=== PATIENT | female | born 1965 | race Caucasian/White ===

== ENCOUNTER 2016-11-01 09:04 | Outpatient (CLI) | payer MEDICAID, OTHER ==
[2016-11-01] MEDS ORDERED: BARIUM SULFATE 135 ML BOTTLE PO ONE (09:59)
[2016-11-01] MEDS ORDERED: BARIUM SULFATE 454 GM TUBE PO ONE (09:59)
--- NOTE | 2016-11-01 10:32 | XRAY Report ---
MODIFIED BARIUM SWALLOW: 11/01/2016 CLINICAL INDICATION: Dysphagia. FINDINGS: Various consistencies of barium were prepared and administered in conjunction with speech pathology. There was no evidence of penetration or aspiration with any administered consistency. Plea se also refer to full report from speech pathology for further findings. IMPRESSION: NO EVIDENCE OF PENETRATION OR ASPIRATION. FLUOROSCOPY TIME: 1 MINUTE 3 SECONDS; 1 SPOT IMAGE OBTAINED (CINE FLUOROSCOPY RECORDED). JOB #: [id number] EXT JOB #:[id number]
== END 2016-11-01 09:05 | disposition home or self-care (01) ==
LOC: DI 09:04
PROVIDERS: ATTEND Nurse Practitioner Family
DX: R13.19 Other dysphagia (principal)
CPT/HCPCS: 74230; 92611; A9270

== ENCOUNTER 2017-03-10 08:48 | Outpatient (CLI) | payer OTHER ==
[2017-03-10 17:45] LABS: BILIRUBIN,URINE NEGATIVE (NEGATIVE); PH,URINE 7.5 PH (5.0-7.5)
[2017-03-10 17:48] LABS: UA CHARGE (STRIP ONLY) YES; UR CULTURE IF IND NOT INDICATED
[2017-03-10 17:52] LABS: BASOPHILS # (AUTO) 0.2 10^3/uL (0.0-0.1); BASOPHILS % (AUTO) 2.4 %; EOSINOPHILS # (AUTO) 0.7 10^3/uL (0.0-0.7); EOSINOPHILS % (AUTO) 10.1 %; HCT - HEMATOCRIT 42.2 % (37.0-47.0); HGB - HEMOGLOBIN 14.1 g/dL (12.0-16.0); LYMPHOCYTES # (AUTO) 1.7 10^3/uL (1.5-3.5); LYMPHOCYTES % (AUTO) 25.3 %; MEAN CORPUSCULAR HEMOGLOBIN 29.3 pg (27.0-31.0); MEAN CORPUSCULAR HGB CONC 33.4 g/dL (32.0-36.0); MEAN CORPUSCULAR VOLUME 87.8 fL (81.0-99.0); MEAN PLATELET VOLUME 9.5 fL (7.9-10.8); MONOCYTES # (AUTO) 0.5 10^3/uL (0.0-1.0); MONOCYTES % (AUTO) 7.1 %; NEUTROPHILS # (AUTO) 3.7 10^3/uL (1.5-6.6); NEUTROPHILS % (AUTO) 55.1 %; RED BLOOD COUNT 4.81 10^6/uL (4.20-5.40); RED CELL DISTRIBUTION WIDTH 12.8 % (12.0-15.0); UNCORRECTED WHITE BLOOD COUNT 6.7 x10^3/uL; WHITE BLOOD COUNT 6.7 x10^3/uL (4.8-10.8)
[2017-03-10 18:13] LABS: ALBUMIN/GLOBULIN RATIO 1.6 (1.0-2.2); BILIRUBIN,TOTAL 0.7 mg/dL (0.2-1.0); BUN - BLOOD UREA NITROGEN 11 mg/dL (6-20); CALCIUM 8.7 mg/dL (8.5-10.3); CARBON DIOXIDE - CO2 28 mmol/L (21-32); CHLORIDE 102 mmol/L (101-111); CHOL/HDL RATIO 3.2 (<4.4); CHOLESTEROL 196 mg/dL; CREATININE 0.8 mg/dL (0.4-1.0); GFR - MDRD 75 (>89); GLUCOSE 83 mg/dL (70-100); HDL CHOLESTEROL 61 mg/dL; SODIUM 136 mmol/L (135-145); TOTAL PROTEIN 6.5 g/dL (6.7-8.2); TRIGLYCERIDES 82 mg/dL; VLDL CHOLESTEROL 16 mg/dL
[2017-03-12 16:31] LABS: TEST RESULT REPORT
== END 2017-03-10 08:49 | disposition home or self-care (01) ==
LOC: LAB.F 08:48
PROVIDERS: ATTEND Nurse Practitioner Family
DX: Z00.00 Encounter for general adult medical examination without abnormal findings (principal); R30.0 Dysuria; E55.9 Vitamin D deficiency, unspecified; E78.5 Hyperlipidemia, unspecified; N90.89 Other specified noninflammatory disorders of vulva and perineum
CPT/HCPCS: 36415; 80053; 80061; 81001; 81003; 81599; 82306; 82728; 85025; 86695; 86696; 87086

== ENCOUNTER 2018-08-18 14:50 | Outpatient (CLI) | payer OTHER ==
[2018-08-18 17:34] LABS: ALBUMIN 4.1 g/dL (3.2-5.5); ALBUMIN/GLOBULIN RATIO 1.6 (1.0-2.2); BILIRUBIN,TOTAL 0.6 mg/dL (0.2-1.0); CALCIUM 9.1 mg/dL (8.5-10.3); CREATININE 0.7 mg/dL (0.4-1.0); TOTAL PROTEIN 6.7 g/dL (6.7-8.2)
== END 2018-08-18 14:51 | disposition home or self-care (01) ==
LOC: LAB.F 14:50
PROVIDERS: ATTEND Nurse Practitioner Family
DX: E55.9 Vitamin D deficiency, unspecified (principal); Z79.899 Other long term (current) drug therapy
CPT/HCPCS: 36415; 80053; 82306

== ENCOUNTER 2018-09-04 15:56 | Outpatient (CLI) | payer OTHER ==
--- NOTE | 2018-09-05 10:36 | Mammography Report ---
Reason: SCREENING MAMMOGRAM Procedure Date: 09/04/2018 Accession Number: [id number] / [id number] Procedure: CRISPIN - Screening Mammo w/Crow CPT Code: FULL RESULT: EXAM: Screening Mammo w/Crow DATE: 09/04/2018 4:56 PM CLINICAL HISTORY: Screening examination. TECHNIQUE: (B) - Bilateral CC and MLO views were obtained. Bilateral exaggerated CC views were also obtained. COMPARISON: 04/07/2016, 03/23/2016 PARENCHYMAL PATTERN: (A) - The breasts demonstrate scattered fibroglandular densities bilaterally. FINDINGS: There are no suspicious masses, calcifications, or areas of distortion. IMPRESSION: Negative examination. BI-RADS category 1. RECOMMENDATION: (ANNUAL) - Recommend routine annual screening mammography. BI-RADS CATEGORY: (1) - Negative. STANDARD QUALIFYING STATEMENTS: 1. This examination was not reviewed with the aid of Computer-Aided Detection (CAD). 2. A negative or benign imaging report should not preclude biopsy if clinically suspicious findings are present. 3. Dense breasts may obscure an underlying neoplasm. 4. This examination was reviewed with the aid of 3D breast imaging (tomosynthesis).
== END 2018-09-04 15:57 | disposition home or self-care (01) ==
LOC: DI 15:56
PROVIDERS: ATTEND Nurse Practitioner Family
DX: Z12.31 Encounter for screening mammogram for malignant neoplasm of breast (principal)
CPT/HCPCS: 77063; 77067

== ENCOUNTER 2018-12-28 08:25 | Outpatient (CLI) | payer OTHER ==
[2018-12-28 10:27] LABS: ALBUMIN/GLOBULIN RATIO 1.5 (1.0-2.2); BILIRUBIN,TOTAL 0.8 mg/dL (0.2-1.0); CALCIUM 9.1 mg/dL (8.5-10.3); CREATININE 0.8 mg/dL (0.4-1.0); TOTAL PROTEIN 6.7 g/dL (6.7-8.2)
== END 2018-12-28 08:26 | disposition home or self-care (01) ==
LOC: LAB.S 08:25
PROVIDERS: ATTEND Nurse Practitioner Family
DX: R00.2 Palpitations (principal)
CPT/HCPCS: 36415; 80053

== ENCOUNTER 2019-09-06 16:35 | Outpatient (CLI) | payer OTHER | END 2019-09-06 16:36 | disposition home or self-care (01) | LOC: COV 16:35 | PROVIDERS: ATTEND Family Medicine | DX: R05 Cough (principal); R06.02 Shortness of breath; R06.2 Wheezing; M79.10 Myalgia, unspecified site; R53.83 Other fatigue; J02.9 Acute pharyngitis, unspecified; R19.7 Diarrhea, unspecified | CPT/HCPCS: 81599 ==

== ENCOUNTER 2020-08-12 13:09 | Outpatient (CLI) | payer OTHER | END 2020-08-12 13:10 | disposition home or self-care (01) | LOC: LAB.S 13:09 | PROVIDERS: ATTEND Nurse Practitioner Family | DX: Z00.00 Encounter for general adult medical examination without abnormal findings (principal); Z53.9 Procedure and treatment not carried out, unspecified reason; E55.9 Vitamin D deficiency, unspecified; E78.5 Hyperlipidemia, unspecified ==

== ENCOUNTER 2020-08-13 08:41 | Outpatient (CLI) | payer OTHER ==
[2020-08-13 14:29] LABS: BASOPHILS # (AUTO) 0.2 10^3/uL (0.0-0.1); BASOPHILS % (AUTO) 2.9 %; EOSINOPHILS # (AUTO) 0.7 10^3/uL (0.0-0.7); EOSINOPHILS % (AUTO) 11.2 %; HCT - HEMATOCRIT 42.6 % (37.0-47.0); HGB - HEMOGLOBIN 14.1 g/dL (12.0-16.0); LYMPHOCYTES # (AUTO) 2.2 10^3/uL (1.5-3.5); LYMPHOCYTES % (AUTO) 36.4 %; MEAN CORPUSCULAR HEMOGLOBIN 29.7 pg (27.0-31.0); MEAN CORPUSCULAR HGB CONC 33.1 g/dL (32.0-36.0); MEAN CORPUSCULAR VOLUME 89.7 fL (81.0-99.0); MEAN PLATELET VOLUME 11.5 fL (7.9-10.8); MONOCYTES # (AUTO) 0.5 10^3/uL (0.0-1.0); MONOCYTES % (AUTO) 8.1 %; NEUTROPHILS # (AUTO) 2.4 10^3/uL (1.5-6.6); NEUTROPHILS % (AUTO) 41.2 %; PLT - PLATELET COUNT 235 10^3/uL (130-450); RED BLOOD COUNT 4.75 10^6/uL (4.20-5.40); RED CELL DISTRIBUTION WIDTH 12.5 % (12.0-15.0); WHITE BLOOD COUNT 5.9 x10^3/uL (4.8-10.8)
[2020-08-13 15:07] LABS: ALBUMIN/GLOBULIN RATIO 1.4 (1.0-2.2); ALKALINE PHOSPHATASE 51 IU/L (42-121); ALT ALANINE AMINOTRANSFERASE 15 IU/L (10-60); AST ASPARTATE AMINOTRANSFERASE 18 IU/L (10-42); BILIRUBIN,TOTAL 0.9 mg/dL (0.2-1.0); BUN - BLOOD UREA NITROGEN 11 mg/dL (6-20); CARBON DIOXIDE - CO2 28 mmol/L (21-32); CHLORIDE 104 mmol/L (101-111); CHOL/HDL RATIO 3.7 (<4.4); CHOLESTEROL 192 mg/dL; CREATININE 0.8 mg/dL (0.4-1.0); GFR - MDRD 74 (>89); GLUCOSE 87 mg/dL (70-100); HDL CHOLESTEROL 52 mg/dL; LDL CHOLESTEROL,CALCULATED 122 mg/dL; LDL/HDL RATIO 2.3 (<4.4); SODIUM 139 mmol/L (135-145); TOTAL PROTEIN 6.8 g/dL (6.7-8.2); TRIGLYCERIDES 92 mg/dL; VLDL CHOLESTEROL 18 mg/dL
== END 2020-08-13 08:42 | disposition home or self-care (01) ==
LOC: LAB.S 08:41
PROVIDERS: ATTEND Nurse Practitioner Family
DX: Z00.00 Encounter for general adult medical examination without abnormal findings (principal); E55.9 Vitamin D deficiency, unspecified; E78.5 Hyperlipidemia, unspecified
CPT/HCPCS: 36415; 80053; 80061; 82306; 82728; 83721; 85025

== ENCOUNTER 2021-10-01 08:00 | Outpatient (CLI) | payer OTHER ==
[2021-10-01 19:58] LABS: BILIRUBIN,URINE NEGATIVE (NEGATIVE); GLUCOSE, URINE (UA) NEGATIVE (NEGATIVE); KETONES,URINE (UA) NEGATIVE (NEGATIVE); LEUKOCYTE ESTERASE, URINE NEGATIVE (NEGATIVE); NITRITE,URINE NEGATIVE (NEGATIVE); OCCULT BLOOD,URINE NEGATIVE (NEGATIVE); PH,URINE 6.5 PH (5.0-7.5); PROTEIN,URINE NEGATIVE (NEGATIVE); UROBILINOGEN,URINE 0.2 (NORMAL) E.U./dL (NORMAL)
[2021-10-01 20:15] LABS: CLARITY,URINE CLEAR (CLEAR)
[2021-10-01 20:16] LABS: BACTERIA,URINE None Seen /HPF (None Seen); RBC,URINE None Seen /HPF (0-5); SQUAMOUS EPITHELIAL CELL,UR RARE Squamous (<= Few); WBC,URINE 0-3 /HPF (0-5)
== END 2021-10-01 23:59 | disposition home or self-care (01) ==
LOC: LAB 08:00
PROVIDERS: ATTEND Physician Assistant Medical
DX: R35.0 Frequency of micturition (principal)
CPT/HCPCS: 81001; 87086

== ENCOUNTER 2021-10-13 22:06 | Emergency (ER) | payer OTHER ==
--- NOTE | 2021-10-13 22:23 | ED Physician Documentation ---
PD HPI CHEST PAIN - Stated complaint Stated Complaint: CHEST PX - History obtained from History obtained from: Patient - History of Present Illness Timing - onset: Yesterday Timing - details: Gradual onset, Waxing and waning Pain level max: 3 Pain level now: 0 Quality: Tightness, Sharp, Pain Radiation: Back (left upper back), Left upper extremity (left shoulder) Improved by: Nothing Worsened by: Other (no exacerbating factors) Associated symptoms: No: Shortness of air, Diaphoresis, Nausea, Vomiting, Feeling faint / dizzy, General Weakness, Palpitations, Cough Similar symptoms before: Has not had sx before Recently seen: Not recently seen - Additional information Additional information: patient c/o left chest pain, episodic since yesterday morning. She started rx propranolol yesterday before symptoms started; this was prescribed for migraine headache. She had not taken this medication before and last dose was 3 PM today. She has had intermittent chest pain since starting the medication. Today she noted heart rate was as low as 40s and blood pressure was as low as 68/47. Review of Systems Constitutional: reports: Reviewed and negative Cardiac: reports: Chest pain / pressure. denies: Palpitations, Pedal edema Respiratory: reports: Reviewed and negative GI: reports: Reviewed and negative PD PAST MEDICAL HISTORY - Past Medical History Past Medical History: Yes Neuro: Migraines - Present Medications Home Medications: Ambulatory Orders Medication Instructions Recorded Confirmed Sumatriptan Succinate [Imitrex] 100 mg PO DAILY 10/14/21 10/14/21 - Allergies Allergies/Adverse Reactions: Allergies Allergy/AdvReac Type Severity Reaction Status Date / Time latex Allergy Unknown Verified 10/14/21 00:20 Penicillins Allergy Unknown Verified 10/14/21 00:21 Sulfa (Sulfonamide Allergy Unknown Verified 10/14/21 00:22 Antibiotics) tamoxifen Allergy Unknown Verified 10/14/21 00:20 - Living Situation Living Arrangement: reports: At home - Social History Does the pt smoke?: No PD ED PE NORMAL - Vitals Vital signs reviewed: Yes - General General: Alert and oriented X 3, No acute distress, Well developed/nourished - Cardiac Cardiac: RRR, No murmur, No gallop, No rub - Respiratory Respiratory: No respiratory distress, Clear bilaterally - Abdomen Abdomen: Soft, Non tender - Extremities Extremities: No edema Results - Vitals Vitals: Oxygen O2 Source Room air - EKG (time done) No standard instances Rate: Rate (enter#) (47) Rhythm: NSR Howes: Normal Intervals: Normal OR QRS: Normal Ischemia: Normal ST segments - Labs Labs: Laboratory Tests 10/13/21 10/13/21 10/13/21 22:35 22:35 23:03 WBC 7.2 RBC 4.52 Hgb 13.8 Hct 40.1 MCV 88.7 MCH 30.5 MCHC 34.4 RDW 12.6 Plt Count 194 MPV 11.5 H Neut # (Auto) 2.8 Lymph # (Auto) 3.0 [place] # (Auto) 0.6 Eos # (Auto) 0.7 Baso # (Auto) 0.2 H Absolute Nucleated RBC 0.00 Nucleated RBC % 0.0 Sodium 139 Potassium 4.2 Chloride 102 Carbon Dioxide 29 Anion Gap 8.0 BUN 11 Creatinine 0.8 Estimated GFR (MDRD) 74 L Glucose 107 H Calcium 8.8 Total Bilirubin 0.4 AST 21 ALT 13 Alkaline Phosphatase 52 Troponin I High Sens 2.6 Total Protein 6.5 L Albumin 4.0 Globulin 2.5 Albumin/Globulin Ratio 1.6 Lipase 37 PD MEDICAL DECISION MAKING - ED course Complexity details: reviewed results, re-evaluated patient, considered abimael álvarez, d/w patient ED course: c/o intermittent chest pain since starting propranolol yesterday which was prescribed for migraine headache. she noted low heart rate and low blood pressure reading at home as noted above (in HPI). she is normotensive in ED with pulse rate 40s-60. EKG unremarkable aside from sinus bradycardia and blood tests unremarkable including normal hs-cTn. Unclear as to cause of chest pain at this time. I instructed patient to not take the propranolol and to follow up with pmd to discuss alternative medication for migraine control as well as reeva luation regarding the chest pain. Departure - Departure Disposition: 01 Home, Self Care Clinical Impression: Bradycardia Chest pain Qualifiers: Chest pain type: unspecified Qualified Code(s): R07.9 - Chest pain, unspecified Condition: Good Instructions: ED Bradycardia, ED Chest Pain Atypical Unkn Cause Comments: As we discussed, the most likely explanation for the low heart rate and low blood pressures you had at home is the propranolol; you should not take the propranolol again. As for the chest pain, this might have been a consequence of the low blood pressure but there are other possible causes. For example, if your chest pain were due to angina (chest pain due to inadequate blood flow through one or more of the coronary arteries), this might have actually been the cause of the low blood pressure. Tonight's tests are reassuring (EKG, blood tests including a cardiac blood test), but you should follow up with your primary care provider for reevaluation and to see if other tests are needed. Discharge Date/Time: 10/14/21 01:17
--- OUTSIDE RECORDS SUMMARY | 2021-10-13 22:50 | EXTERNAL MEDICAL SUMMARY RPT | Continuity of Care Document ---
:1965 Author Organization [facility] Address [address] [place] [address] Phone Care Team Providers Name Role Phone MANAGER [employer]POR[employer]S-C Unavailable Unavailable Allergies No information. Encounters No information. Medications No information. Problems date description facility 20211001 Urinary frequency [facility] 20211001 Urinalysis with Microscopic Exam, [facility] & Culture in Indicated Ancillary Services [facility] 20211001 Unspecified symptom associated with [facility]-In Clinic Primary Care & female genital organs Ancillary Services [facility] 20211001 Unspecified abdominal pain Walk-In Cli j[facility] 20211001 US PELVIC/TRANSVAGINAL [facility] 20211001 US ABDOMINAL COMPLETE [facility] P rimary Care & [facility] 20211001 Tobacco smoking status NHIS [facility] in [facility] 20211001 Pelvic and perineal pain [facility] 20211001 Pain in pelvis [facility] 20211001 Never smoker [facility] 20211001 Increased frequency of urination [facility] 20211001 Frequency of micturition [facility] 20211001 Exercise [facility] 20211001 Details of drug misuse behavior [facility] 20211001 Alcohol use [facility] 20211001 Alcohol intake [facility] 20211001 Acute abdominal pain [facility] Pr imary [facility] 20211001 Abdominal pain, unspecified site [facility] [id number] LIPIDS SCREEN [facility] [id number] COMPREHENSIVE METABOLIC PANEL Walk-In [facility] [id number] CBC W/Diff/Plt Walk-In Clinic [facility] Services [facility] Procedures date description facility 20211001 POC URINALYSIS DIP Walk-In [facility] Results test status date ordered by attending specimen ana e WBC_urine_on_microscop unknown 20211001 unknown unknown unknown y Urobilinogen_Presence_ unknown 20211001 unknown unknown unknown in_Urine_by_Test_strip Specific_gravity_of_Ur unknown 20211001 unknown unknown unknown ine_by_Test_strip pH_of_Urine_by_Test_st unknown 20211001 unknown unknown unknown rip Nitrite_Presence_in_Ur unknown 20211001 unknown unknown unknown ine_by_Test_strip Leukocyte_esterase_Pre unknown 20211001 unknown unknown unknown sence_in_Urine_by_Test_ strip Ketones_Mass_volume_in unknown 20211001 unknown unknown unknown _Urine_by_Test_strip Glucose_Mass_volume_in unknown 20211001 unknown unknown unknown _Urine_by_Test_strip Color_of_Urine unknown 20211001 unknown unknown unknown Bilirubin.total_Presen unknown 20211001 unknown unknown unknown ce_in_Urine_by_Test_str ip Appearance_of_Urine unknown 20211001 unknown unknown unk nown clarity_urine_point unknown 20211001 unknown unknown unk nown pH_study_of_acidity unknown 20211001 unknown unknown unk nown urinalysis_routine unknown 20211001 unknown unknown unkn own glucose_urine unknown 20211001 unknown unknown unknown appearance_urine unknown 20211001 unknown unknown unknow n leukocyte_esterase_uri unknown 20211001 unknown unknown unknown ne_by_dipstick urobilinogen_urine_sem unknown 20211001 unknown unknown unknown iquantitative_dipstick_ specific_gravity_urine unknown 20211001 unknown unknown unknown pH_urine_semiquantitat unknown 20211001 unknown unknown unknown seinna nitrite_urine_semiquan unknown 20211001 unknown unknown unknown titative ketones_urine_by_test_ unknown 20211001 unknown unknown unknown strip bilirubin_urine unknown 20211001 unknown unknown unknown urine_color unknown 20211001 unknown unknown unknown Glucose_Mass_volume_in unknown 20211001 unknown unknown unknown _Urine Albumin_Presence_in_Ur unknown 20211001 unknown unknown unknown ine RBC_urine_dipstick unknown 20211001 unknown unknown unkn own Erythrocytes_area_in_U unknown 20211001 unknown unknown unknown rine_sediment_by_Micros copy_high_power_field glucose_urine_semiquan unknown 20211001 unknown unknown unknown titative protein_urine_semiquan unknown 20211001 unknown unknown unknown titative_dipstick_ Urine_HCG_QC_Result_CL unknown 20211001 unknown unknown unknown IA_Waived_ WBC_urine_on_microscop unknown 20211001 unknown unknown unknown y DIPSTICK_URINE_STRIP_L unknown 20211001 unknown unknown unknown OT_NUMBER WBC_URINE unknown 20211001 unknown unknown unknown T unknown 20211001 unknown unknown unknown T unknown 20211001 unknown unknown unknown T unknown 20211001 unknown unknown unknown T unknown 20211001 unknown unknown unknown PH_URINE unknown 20211001 unknown unknown unknown GLUCOSE_URINE_UA_ unknown 20211001 unknown unknown unkno wn CLARITY_URINE unknown 20211001 unknown unknown unknown facility observation status value reference units lab abnor mal line range code notes Walk-In WBC_urine_on unknown 0-3 /HPF unknown _5821- unkn own unknown Clinic _microscopy 4 [facility] Urobilinogen unknown negative unknown _5818- unkn own unknown Clinic _Presence_in_ 0 Primary Urine_by_Test Care & _strip Ancillary Services [facility] Specific_gra unknown 1.010 unknown _5811- unknow n unknown Clinic vity_of_Urine 5 Primary _by_Test_stri Care & p [facility]illary [facility] pH_of_Urine_ unknown 7 unknown _5803- unknow n unknown Clinic by_Test_strip 2 [facility] Nitrite_Pres unknown negative unknown _5802- unkn own unknown Clinic ence_in_Urine 4 Primary _by_Test_stri Care & p [facility]illary [facility] Leukocyte_es unknown negative unknown _5799- unkn own unknown Clinic terase_Presen 2 Primary ce_in_Urine_b Care & y_Test_strip Ancillary Services [facility] Ketones_Mass unknown negative unknown _5797- unkn own unknown Clinic _volume_in_Ur 6 Primary ine_by_Test_s Care & trip Ancillary Services [facility] Glucose_Mass unknown negative unknown _5792- unkn own unknown Clinic _volume_in_Ur 7 Primary ine_by_Test_s Care & trip Ancillary [facility] Color_of_Uri unknown yellow unknown _5778- unknow n unknown Clinic ne 6 [facility] Bilirubin.to unknown negative unknown _5770- unkn own unknown Clinic tal_Presence_ 3 Primary in_Urine_by_T Care & est_strip Ancillary Services [facility] Appearance_o unknown clear unknown _5767- unknow n unknown Clinic f_Urine 9 [facility] clarity_urin unknown CLEAR unknown _5589 unknow n unknown Clinic e_point [facility] pH_study_of_ unknown 6.5 unknown _51641 unknow n unknown Clinic acidity [facility] urinalysis_r unknown Clean unknown _47 unknow n unknown Clinic outine Catch [facility] glucose_urin unknown NEGATIVE unknown _3369 unkn own unknown Clinic e mg/dL [facility] appearance_u unknown clear unknown _328 unknow n unknown Clinic rine [facility] leukocyte_es unknown negative unknown _327 unkn own unknown Clinic terase_urine_ Primary by_dipstick Care & Ancillary Services [facility] urobilinogen unknown negative unknown _326 unkn own unknown Clinic _urine_semiqu Primary antitative_di Care & pstick_ Ancillary Services [facility] specific_gra unknown 1.010 unknown _325 unknow n unknown Clinic vity_urine [facility] pH_urine_sem unknown 7 unknown _324 unknow n unknown Clinic iquantitative [facility] nitrite_urin unknown negative unknown _323 unkn own unknown Clinic e_semiquantit Primary ative [facility] & [facility] ketones_urin unknown negative unknown _322 unkn own unknown Clinic e_by_test_str Primary ip Care & [facility] bilirubin_ur unknown negative unknown _319 unkn own unknown Clinic ine [facility] urine_color unknown yellow unknown _2751 unknown unknown Clinic [facility] Glucose_Mass unknown NEGATIVE unknown _2350- unkn own unknown Clinic _volume_in_Ur mg/dL 7 Primary ine Care & Ancillary Services [facility] Albumin_Pres unknown negative unknown _1753- unkn own unknown Clinic ence_in_Urine 3 [facility] Walk-In RBC_urine_di unknown negative unknown _17000 unkn own unknown Clinic pstick 05 [facility] Erythrocytes unknown negative unknown _13945 unkn own unknown Clinic _area_in_Urin -1 Primary e_sediment_by Care & _Microscopy_h Ancillary igh_power_fie Services ld [facility] Walk-In glucose_urin unknown negative unknown _123 unkn own unknown Clinic e_semiquantit Primary ative Care & Ancillary Services [facility] protein_urin unknown negative unknown _118 unkn own unknown Clinic e_semiquantit Primary ative_dipstic Care & k_ Ancillary Services [facility] Urine_HCG_QC unknown Yes unknown _11494 unknow n unknown Clinic _Result_CLIA_ 2 Primary Waived_ Care & Ancillary Services [facility] WBC_urine_on unknown 0-3 /HPF unknown _1016 unkn own unknown Clinic _microscopy [facility] DIPSTICK_URI unknown 91491 unknown _10140 unknow n unknown Clinic NE_STRIP_LOT_ 0 Primary NUMBER Care & Ancillary Services [facility] WBC_URINE unknown 0-3 /HPF unknown UWBC unknown unknown Clinic [facility] T unknown 0-3 /HPF unknown [facility] T unknown 6.5 unknown UR_PH unknown [facility] T unknown NEGATIVE unknown UR_GLU [facility] T unknown CLEAR unknown UR_CLA unknown [facility] RITY [facility] [place] [facility] PH_URINE unknown 6.5 unknown UPH [facility] GLUCOSE_URIN unknown NEGATIVE unknown UGLUC unkn own unknown Clinic E_UA_ mg/dL Primary [facility] Services [place] [facility] CLARITY_URIN unknown CLEAR unknown UCLAR unknow n unknown Clinic E [facility] [place] Vital Signs date measurement value source 20211001 weight_standard 161.8 lb 20211001 weight_metric 73.39 kg 20211001 temperature_standard 97.6 F 20211001 temperature_metric 36.44 C 20211001 respiration_rate 15 /min 20211001 height_standard 69.5 in 20211001 height_metric 176.53 cm 20211001 heart_rate 72 /min 20211001 BP_systolic 95 mm[Hg] 20211001 BP_diastolic 67 mm[Hg] 20211001 BMI 23.64 kg/m2
[2021-10-13 23:02] LABS: ALBUMIN/GLOBULIN RATIO 1.6 (1.0-2.2); BILIRUBIN,TOTAL 0.4 mg/dL (0.2-1.0); CALCIUM 8.8 mg/dL (8.5-10.3); CREATININE 0.8 mg/dL (0.4-1.0); POTASSIUM 4.2 mmol/L (3.5-5.0); TOTAL PROTEIN 6.5 g/dL (6.7-8.2)
[2021-10-13 23:08] LABS: BASOPHILS # (AUTO) 0.2 10^3/uL (0.0-0.1); BASOPHILS % (AUTO) 2.1 %; EOSINOPHILS # (AUTO) 0.7 10^3/uL (0.0-0.7); EOSINOPHILS % (AUTO) 9.5 %; HCT - HEMATOCRIT 40.1 % (37.0-47.0); HGB - HEMOGLOBIN 13.8 g/dL (12.0-16.0); MEAN CORPUSCULAR HEMOGLOBIN 30.5 pg (27.0-31.0); MEAN CORPUSCULAR HGB CONC 34.4 g/dL (32.0-36.0); MEAN CORPUSCULAR VOLUME 88.7 fL (81.0-99.0); MEAN PLATELET VOLUME 11.5 fL (7.9-10.8); MONOCYTES # (AUTO) 0.6 10^3/uL (0.0-1.0); MONOCYTES % (AUTO) 7.6 %; NEUTROPHILS # (AUTO) 2.8 10^3/uL (1.5-6.6); NEUTROPHILS % (AUTO) 38.8 %; PLT - PLATELET COUNT 194 10^3/uL (130-450); RED BLOOD COUNT 4.52 10^6/uL (4.20-5.40); RED CELL DISTRIBUTION WIDTH 12.6 % (12.0-15.0); WHITE BLOOD COUNT 7.2 x10^3/uL (4.8-10.8)
[2021-10-14 01:02] VITALS: BP 108/62
== END 2021-10-14 01:17 | disposition home or self-care (01) ==
LOC: ED 22:06
DX: R00.1 Bradycardia, unspecified (principal); R07.9 Chest pain, unspecified
CPT/HCPCS: 36415; 80053; 83690; 84484; 85025; 93005; 99282; 99283

== ENCOUNTER 2022-01-26 12:26 | Outpatient (CLI) | payer OTHER ==
--- NOTE | 2022-01-27 10:29 | Mammography Report ---
UNILATERAL LEFT DIGITAL DIAGNOSTIC MAMMOGRAM 3D/2D: 01/26/2022 CLINICAL: Patient returns today to evaluate a focal asymmetry in the left breast. Comparison is made to exams dated: 01/05/2022 mammogram, 09/04/2018 mammogram, and 04/07/2016 mammogra m - [facility]. There are scattered areas of fibroglandular density in the left breast (category b / 25%-50% glandula r tissue). There is a new 0.4 cm round mass with rim calcifications in the left breast at 1 o'clock in the retro areolar region. No other significant masses or calcifications are seen in the breast. IMPRESSION: INCOMPLETE: NEEDS ADDITIONAL IMAGING EVALUATION The new 0.4 cm round mass in the left breast is indeterminate. An ultrasound is recommended. Based on the Tyrer Cuzick model (a risk assessment model) the patients lifetime risk is 6.7% and her 10 year risk is 2.3%. According to the ACR, ACS, and NCCN guidelines, an annual breast MRI exam josemanuel g with mammogram is recommended if the patients lifetime risk is 20% or greater. This exam was interpreted at Station ID: [id number]. NOTE: For mammograms, a report in lay terms will be sent to the patient. Approximately 15% of breast malignancies will not be visualized mammographically. In the management of a palpable breast mass, a negative mammogram must not discourage biopsy of a clinically suspicious lesion. Electronically Signed By: Demond Kern M.D. lc/:01/26/2022 13:43:13 ACR BI-RADS Category 0: Incomplete 3340F PARENCHYMAL PATTERN: (A) - The breast(s) demonstrate(s) scattered fibroglandular densities. BI-RADS CATEGORY: (0) - 0 Ultrasound [id number] Immediate follow-up LATERALITY: (B)
--- NOTE | 2022-01-27 10:29 | Ultrasound Report ---
LIMITED ULTRASOUND OF LEFT BREAST: 01/26/2022 CLINICAL: Patient returns today to evaluate a focal asymmetry in the left breast. Comparison is made to exams dated: 01/26/2022 mammogram, 01/05/2022 mammogram, 09/04/2018 mammogram, mammogram, 03/23/2016 mammogram, and 10/23/2013 mammogram - [facility]. Color flow ultrasound of the left breast retroareolar was performed. Clancy scale images of the real- time examination were reviewed. There is a new 0.4 cm oval mass with a circumscribed margin in the left breast at 1 o'clock in the re troareolar region. This oval mass is hypoechoic. This correlates with mammography findings. IMPRESSION: PROBABLY BENIGN The new 0.4 cm oval mass in the left breast likely represents fat necrosis and is probably benign. Th ere is subtle rim calcification on the mammogram. A follow-up mammogram and an ultrasound in 6 months is recommended to demonstrate stability. This exam was interpreted at Station ID: [id number]. Electronically Signed By: Demond Kern M.D. lc/:01/26/2022 13:44:52 Ultrasound BI-RADS: 3 Probably benign BI-RADS CATEGORY: (3) - 3 Mammo and US [id number] 6 month follow-up LATERALITY: (B)
== END 2022-01-26 12:27 | disposition home or self-care (01) ==
LOC: DI 12:26
PROVIDERS: ATTEND Registered Nurse
DX: R92.8 Other abnormal and inconclusive findings on diagnostic imaging of breast (principal)

== ENCOUNTER 2022-02-02 08:01 | Outpatient (CLI) | payer OTHER ==
[2022-02-02 14:34] LABS: BASOPHILS # (AUTO) 0.2 10^3/uL (0.0-0.1); BASOPHILS % (AUTO) 2.6 %; EOSINOPHILS # (AUTO) 0.9 10^3/uL (0.0-0.7); EOSINOPHILS % (AUTO) 14.7 %; HCT - HEMATOCRIT 41.8 % (37.0-47.0); HGB - HEMOGLOBIN 14.1 g/dL (12.0-16.0); LYMPHOCYTES # (AUTO) 2.3 10^3/uL (1.5-3.5); LYMPHOCYTES % (AUTO) 37.8 %; MEAN CORPUSCULAR HEMOGLOBIN 29.9 pg (27.0-31.0); MEAN CORPUSCULAR HGB CONC 33.7 g/dL (32.0-36.0); MEAN CORPUSCULAR VOLUME 88.7 fL (81.0-99.0); MEAN PLATELET VOLUME 12.1 fL (7.9-10.8); MONOCYTES # (AUTO) 0.4 10^3/uL (0.0-1.0); MONOCYTES % (AUTO) 7.2 %; NEUTROPHILS # (AUTO) 2.3 10^3/uL (1.5-6.6); NEUTROPHILS % (AUTO) 37.5 %; PLT - PLATELET COUNT 195 10^3/uL (130-450); RED BLOOD COUNT 4.71 10^6/uL (4.20-5.40); RED CELL DISTRIBUTION WIDTH 12.9 % (12.0-15.0); WHITE BLOOD COUNT 6.1 x10^3/uL (4.8-10.8)
[2022-02-02 15:19] LABS: ALBUMIN/GLOBULIN RATIO 1.7 (1.0-2.2); BILIRUBIN,TOTAL 0.7 mg/dL (0.2-1.0); CALCIUM 8.9 mg/dL (8.5-10.3); CREATININE 0.8 mg/dL (0.4-1.0); POTASSIUM 3.9 mmol/L (3.5-5.0); TOTAL PROTEIN 6.4 g/dL (6.7-8.2)
[2022-02-02 15:31] LABS: THYROID STIMULATING HORMONE 3.73 uIU/mL (0.34-5.60)
== END 2022-02-02 08:02 | disposition home or self-care (01) ==
LOC: LAB.S 08:01
PROVIDERS: ATTEND Registered Nurse
DX: Z79.899 Other long term (current) drug therapy (principal); Z13.29 Encounter for screening for other suspected endocrine disorder
CPT/HCPCS: 36415; 80053; 84443; 85025

== ENCOUNTER 2022-09-15 12:43 | Outpatient (CLI) | payer OTHER ==
--- NOTE | 2022-09-16 10:10 | Ultrasound Report ---
LIMITED ULTRASOUND OF LEFT BREAST: 09/15/2022 CLINICAL: Patient returns today to evaluate a focal asymmetry in the left breast. Comparison is made to exams dated: 09/15/2022 mammogram, 01/26/2022 mammogram, 01/05/2022 mammogram, 08/21 mammogram, 04/07/2016 mammogram, and 03/23/2016 mammogram - [facility]. Ultrasound of the left breast 4-8 o'clock region was performed. Clancy scale images of the real-time examination were reviewed. No significant abnormalities were seen sonographically in the left breast. Specifically, no finding to correspond to the patient's possible mammogram abnormality in the inferior left breast. IMPRESSION: NEGATIVE There is no sonographic correlate to the patient's possible mammogram abnormality and no evidence of malignancy. Return to annual mammogram screening schedule is recommended. Findings and recommendations were conveyed to the patient at time of exam. This exam was interpreted at Station ID: [id number]. Electronically Signed By: Kae sam/:09/15/2022 13:44:22 letter sent: No_Letter Ultrasound BI-RADS: 1 Negative BI-RADS CATEGORY: (1) - 1 Mammogram [id number] return to screening LATERALITY: (B)
--- NOTE | 2022-09-16 10:10 | Mammography Report ---
UNILATERAL LEFT DIGITAL DIAGNOSTIC MAMMOGRAM 3D/2D WITH LATEROMEDIAL: 09/15/2022 CLINICAL: Patient returns for a 6 month follow up of the left breast. Comparison is made to exams dated: 01/26/2022 mammogram, 01/05/2022 mammogram, 09/04/2018 mammogram, mammogram, and 03/23/2016 mammogram - [facility]. There are scattered areas of fibroglandular density in the left breast (category b / 25%-50% glandula r tissue). The 0.4 cm round low density mass with rim calcifications in the left breast at 2 o'clock in the retr oareolar region is stable. There is an incidental, possible irregular high density asymmetry in the left breast posterior depth inferior region seen on the mediolateral oblique view only. This does not definitely persist in angelica tional views, but is more prominent compared to priors. No other significant masses or calcifications are seen in the breast. IMPRESSION: INCOMPLETE: NEEDS ADDITIONAL IMAGING EVALUATION The possible irregular high density asymmetry in the left breast posterior depth inferior region seen on the mediolateral oblique view only is indeterminate. An ultrasound is recommended. This was per formed immediately following this exam. The stable 0.4 cm round low density mass in the left breast at 2 o'clock in the retroareolar region i s consistent with an oil cyst and is benign. Based on the Tyrer Cuzick model (a risk assessment model) the patients lifetime risk is 6.7% and her 10 year risk is 2.3%. According to the ACR, ACS, and NCCN guidelines, an annual breast MRI exam josemanuel g with mammogram is recommended if the patients lifetime risk is 20% or greater. This exam was interpreted at Station ID: [id number]. NOTE: For mammograms, a report in lay terms will be sent to the patient. Approximately 15% of breast malignancies will not be visualized mammographically. In the management of a palpable breast mass, a negative mammogram must not discourage biopsy of a clinically suspicious lesion. Electronically Signed By: Kae sam/:09/15/2022 13:30:20 ACR BI-RADS Category 0: Incomplete 3340F PARENCHYMAL PATTERN: (A) - The breast(s) demonstrate(s) scattered fibroglandular densities. BI-RADS CATEGORY: (0) - 0 Ultrasound [id number] Immediate follow-up LATERALITY: (B)
== END 2022-09-15 12:44 | disposition home or self-care (01) ==
LOC: DI 12:43
PROVIDERS: ATTEND Registered Nurse
DX: R92.8 Other abnormal and inconclusive findings on diagnostic imaging of breast (principal)

== ENCOUNTER 2023-02-02 09:16 | Outpatient (CLI) | payer OTHER ==
[2023-02-02 14:44] LABS: BASOPHILS # (AUTO) 0.1 10^3/uL (0.0-0.1); BASOPHILS % (AUTO) 2.1 %; EOSINOPHILS # (AUTO) 0.6 10^3/uL (0.0-0.7); EOSINOPHILS % (AUTO) 10.9 %; HCT - HEMATOCRIT 41.8 % (37.0-47.0); HGB - HEMOGLOBIN 13.9 g/dL (12.0-16.0); LYMPHOCYTES # (AUTO) 2.2 10^3/uL (1.5-3.5); LYMPHOCYTES % (AUTO) 38.8 %; MEAN CORPUSCULAR HEMOGLOBIN 29.6 pg (27.0-31.0); MEAN CORPUSCULAR HGB CONC 33.3 g/dL (32.0-36.0); MEAN CORPUSCULAR VOLUME 88.9 fL (81.0-99.0); MEAN PLATELET VOLUME 11.9 fL (7.9-10.8); MONOCYTES # (AUTO) 0.5 10^3/uL (0.0-1.0); MONOCYTES % (AUTO) 8.1 %; NEUTROPHILS # (AUTO) 2.3 10^3/uL (1.5-6.6); NEUTROPHILS % (AUTO) 39.8 %; PLT - PLATELET COUNT 210 10^3/uL (130-450); RED CELL DISTRIBUTION WIDTH 12.7 % (12.0-15.0); WHITE BLOOD COUNT 5.8 x10^3/uL (4.8-10.8)
[2023-02-02 15:46] LABS: ALBUMIN/GLOBULIN RATIO 1.7 (1.0-2.2); ALKALINE PHOSPHATASE 52 IU/L (42-121); ALT ALANINE AMINOTRANSFERASE 10 IU/L (10-60); AST ASPARTATE AMINOTRANSFERASE 15 IU/L (10-42); BILIRUBIN,TOTAL 0.5 mg/dL (0.2-1.0); BUN - BLOOD UREA NITROGEN 10 mg/dL (6-20); CALCIUM 9.3 mg/dL (8.5-10.3); CARBON DIOXIDE - CO2 30 mmol/L (21-32); CHLORIDE 105 mmol/L (101-111); CHOL/HDL RATIO 3.7 (<4.4); CHOLESTEROL 201 mg/dL; CREATININE 0.8 mg/dL (0.6-1.3); GFR - MDRD 74 (>89); GLUCOSE 92 mg/dL (74-104); HDL CHOLESTEROL 54 mg/dL; LDL CHOLESTEROL,CALCULATED 108 mg/dL; POTASSIUM 4.2 mmol/L (3.5-4.5); SODIUM 139 mmol/L (135-145); TOTAL PROTEIN 6.3 g/dL (6.4-8.9); TRIGLYCERIDES 195 mg/dL (48-352); VLDL CHOLESTEROL 39 mg/dL
[2023-02-02 15:58] LABS: THYROID STIMULATING HORMONE 3.67 uIU/mL (0.34-5.60)
== END 2023-02-02 09:17 | disposition home or self-care (01) ==
LOC: LAB.S 09:16
PROVIDERS: ATTEND Registered Nurse
DX: Z79.899 Other long term (current) drug therapy (principal); Z13.220 Encounter for screening for lipoid disorders
CPT/HCPCS: 36415; 80053; 80061; 83721; 84443; 85025

== ENCOUNTER 2023-02-22 13:56 | Outpatient (CLI) | payer OTHER ==
[2023-02-22 20:20] LABS: BASOPHILS # (AUTO) 0.1 10^3/uL (0.0-0.1); BASOPHILS % (AUTO) 1.7 %; EOSINOPHILS # (AUTO) 0.5 10^3/uL (0.0-0.7); HGB - HEMOGLOBIN 14.3 g/dL (12.0-16.0); LYMPHOCYTES # (AUTO) 1.9 10^3/uL (1.5-3.5); LYMPHOCYTES % (AUTO) 24.8 %; MEAN CORPUSCULAR HEMOGLOBIN 30.1 pg (27.0-31.0); MEAN CORPUSCULAR HGB CONC 33.3 g/dL (32.0-36.0); MEAN CORPUSCULAR VOLUME 90.5 fL (81.0-99.0); MEAN PLATELET VOLUME 12.4 fL (7.9-10.8); MONOCYTES # (AUTO) 0.6 10^3/uL (0.0-1.0); MONOCYTES % (AUTO) 8.1 %; NEUTROPHILS # (AUTO) 4.6 10^3/uL (1.5-6.6); NEUTROPHILS % (AUTO) 59.3 %; PLT - PLATELET COUNT 212 10^3/uL (130-450); RED BLOOD COUNT 4.75 10^6/uL (4.20-5.40); RED CELL DISTRIBUTION WIDTH 12.8 % (12.0-15.0); WHITE BLOOD COUNT 7.8 x10^3/uL (4.8-10.8)
[2023-02-27 15:08] LABS: D001-IGE D PTERONYSSINUS <0.10 kU/L (Class 0); D002-IGE D FARINAE <0.10 kU/L (Class 0); E001-IGE CAT DANDER <0.10 kU/L (Class 0); E005-IGE DOG DANDER <0.10 kU/L (Class 0); G006-IGE TIMOTHY GRASS 0.27 kU/L (Class 0/I); IMMUNOGLOBULIN E TOTAL 243 IU/mL (6-495); M001-IGE PENICILLIUM CHRYSOGEN <0.10 kU/L (Class 0); M002-IGE CLADOSPORIUM HERBARUM <0.10 kU/L (Class 0); M003-IGE ASPERGILLUS FUMIGATUS <0.10 kU/L (Class 0); M006-IGE ALTERNARIA ALTERNATA 0.13 kU/L (Class 0/I); T001-IGE MAPLE/BOX ELDER 0.19 kU/L (Class 0/I); T002-IGE ALDER GREY 0.15 kU/L (Class 0/I); T003-IGE COMMON SILVER BIRCH 0.12 kU/L (Class 0/I); T006-IGE CEDAR MOUNTAIN 0.22 kU/L (Class 0/I); T007-IGE OAK WHITE 0.27 kU/L (Class 0/I); T008-IGE ELM AMERICAN 0.42 kU/L (Class I); T010-IGE WALNUT 0.37 kU/L (Class I); T014-IGE COTTONWOOD 0.32 kU/L (Class I); T015-IGE ASH WHITE 0.27 kU/L (Class 0/I); W001-IGE RAGWEED SHORT 0.19 kU/L (Class 0/I); W014-IGE PIGWEED COMMON <0.10 kU/L (Class 0); W018-IGE SHEEP SORREL <0.10 kU/L (Class 0); W020-IGE NETTLE 0.27 kU/L (Class 0/I)
== END 2023-02-22 13:57 | disposition home or self-care (01) ==
LOC: LAB.S 13:56
DX: G43.809 Other migraine, not intractable, without status migrainosus (principal); J31.0 Chronic rhinitis
CPT/HCPCS: 36415; 82785; 83520; 85025; 86003

== ENCOUNTER 2023-02-28 08:00 | Outpatient (CLI) | payer OTHER | END 2023-02-28 23:59 | disposition home or self-care (01) | LOC: LAB.R 08:00 | PROVIDERS: ATTEND Internal Medicine Allergy & Immunology | DX: G43.809 Other migraine, not intractable, without status migrainosus (principal) | CPT/HCPCS: 81599; 82542 ==

== ENCOUNTER 2023-06-03 14:42 | Outpatient (CLI) | payer OTHER ==
[2023-06-06 06:11] LABS: IMMUNOGLOBULIN A (IGA) 136 mg/dL (87-352); IMMUNOGLOBULIN G (IGG) 1056 mg/dL (586-1602); IMMUNOGLOBULIN M (IGM) 109 mg/dL (26-217)
== END 2023-06-03 14:43 | disposition home or self-care (01) ==
LOC: LAB.S 14:42
PROVIDERS: ATTEND Internal Medicine Allergy & Immunology
DX: J32.9 Chronic sinusitis, unspecified (principal)
CPT/HCPCS: 81599; 82784; 86317

== ENCOUNTER 2023-09-01 13:16 | Outpatient (CLI) | payer OTHER ==
[2023-09-01] MEDS ORDERED: iohexoL-300 100 ML VIAL ONE (13:26)
--- NOTE | 2023-09-01 19:41 | CT Report ---
PROCEDURE: Abdomen WO INDICATIONS: HEARTBURN CONTRAST: None TECHNIQUE: After the administration of oral contrast, 5 mm thick sections acquired from the diaphragms to the il iac crests. 5 mm coronal and sagittal reformats were then performed. For radiation dose reduction, the following was used: automated exposure control, adjustment of mA and/or kV according to patient size. COMPARISON: No relevant comparisons at time of dictation. FINDINGS: Image quality: Excellent. Lung bases: Lung bases are clear. Heart size is normal. Solid organs: Liver and spleen are normal in size. Subcentimeter hypoattenuating liver lesion in se gment 2/4, too small to characterize by CT probably a small cyst. Gallbladder is unremarkable Pancre as is normal in contours. No adrenal nodules. Both kidneys are normal in size, without hydronephros is or nephrolithiasis. Fluid attenuating cyst on the superior pole of the right kidney, without perc eived complex features. Peritoneum and bowel: Bowel loops demonstrate normal wall thickness and caliber. No free fluid or a ir. Nodes and vessels: No retroperitoneal or mesenteric adenopathy by size criteria. Aorta and inferior vena cava are normal in size. Bones: No suspicious bony lesions. No vertebral body compression fractures. Miscellaneous: Small umbilical hernia containing fat. IMPRESSION: No hiatal hernia. Fluid attenuating renal cyst on the right, incompletely characterized without intravenous contrast. C onsider further evaluation with renal ultrasound. Reviewed by: Sha Regalado MD on 09/01/2023 7:39 PM PDT Approved by: Sha Reaglado MD on 09/01/2023 7:39 PM PDT Station ID: [id number]
== END 2023-09-01 13:17 | disposition home or self-care (01) ==
LOC: DI 13:16
PROVIDERS: ATTEND Registered Nurse
DX: R12 Heartburn (principal); R13.10 Dysphagia, unspecified; N28.1 Cyst of kidney, acquired

== ENCOUNTER 2023-09-07 14:45 | Outpatient (CLI) | payer OTHER ==
[2023-09-08 21:08] LABS: H. PYLORI BREATH TEST Negative (Negative)
== END 2023-09-07 14:46 | disposition home or self-care (01) ==
LOC: LAB 14:45
PROVIDERS: ATTEND Registered Nurse
DX: R12 Heartburn (principal); R13.10 Dysphagia, unspecified
CPT/HCPCS: 83013

== ENCOUNTER 2023-09-22 15:16 | Outpatient (CLI) | payer OTHER ==
--- NOTE | 2023-09-23 09:58 | Ultrasound Report ---
PROCEDURE: Renal (Retroperitoneal) INDICATIONS: RENAL CYST TECHNIQUE: Real-time scanning was performed of the retroperitoneal organs, with image documentation. COMPARISON: CT 09/01/2023 FINDINGS: Kidneys: Kidneys are normal in size. Right kidney measures 10 cm long; left kidney measures 10.4 cm long. Right renal cortical thickness is 1.0 cm; left renal cortical thickness is 1.2 cm. No solid masses, hydronephrosis, or nephrolithiasis. Benign, anechoic cyst on the superior pole of the right k idney measuring 1.6 cm. Bladder: Pre-void bladder volume is 110 mL. Post-void residual is 0 mL. Pre-void images demonstrat e no intraluminal masses or stones. On pre-void images, ureteral jets are noted with color Doppler i nterrogation. (Of note, ureteral jets may not be detectable in up to 25% of cases due to insufficien t differences in specific gravity between ureteral and bladder urine). Miscellaneous: No free abdominal fluid. IMPRESSION: Benign, simple right renal cyst requiring no further follow-up. Reviewed by: Sha Regalado MD on 09/23/2023 9:57 AM PDT Approved by: Sha Regalado MD on 09/23/2023 9:57 AM PDT Station ID: [id number]
== END 2023-09-22 15:17 | disposition home or self-care (01) ==
LOC: DI 15:16
PROVIDERS: ATTEND Registered Nurse
DX: N28.1 Cyst of kidney, acquired (principal)

== ENCOUNTER 2023-10-06 11:10 | Outpatient (CLI) | payer OTHER ==
--- NOTE | 2023-10-06 18:31 | XRAY Report ---
PROCEDURE: Chest 2V INDICATIONS: LLL LOBAR PNEUMONIA TECHNIQUE: 2 views of the chest were acquired. COMPARISON: None. FINDINGS: Surgical changes and devices: None. Lungs and pleura: No pleural effusions or pneumothorax. Ill-defined opacity in left retrocardiac reg ion is seen. Right lung is clear. Mediastinum: Mediastinal contours appear normal. Heart size is normal. Bones and chest wall: No suspicious bony lesions. Overlying soft tissues appear unremarkable. IMPRESSION: Small left lower lobe infiltrate. No pleural effusion or pneumothorax. Reviewed by: Shorty Mckeon MD on 10/06/2023 6:30 PM PDT Approved by: Shorty Mckeon MD on 10/06/2023 6:30 PM PDT Station ID: [id number]
== END 2023-10-06 23:59 | disposition home or self-care (01) ==
LOC: DI.S 11:10
PROVIDERS: ATTEND Emergency Medicine
DX: J18.1 Lobar pneumonia, unspecified organism (principal)

== ENCOUNTER 2023-11-25 08:25 | Day surgery (SDC) | payer MEDICARE, OTHER ==
[2023-11-25] MEDS ORDERED: LIDOCAINE-MPF 2% 5 ML VIAL ONE (08:31)
[2023-11-25] MEDS ORDERED: PROPOFOL 200 MG/20 ML VIAL IVP ONE (09:29)
[2023-11-25] MEDS: LACTATED RINGERS 1,000 ML IV ONE (10:59)
--- NOTE | 2023-11-25 12:31 | ANESTHESIA ---
Pre-Anesthesia VS, & Labs - Diagnosis dysphagia, GERD - Procedure EGD with biopsy Height: 5 ft 10 in Weight (kg): 71 kg Body Mass Index: 22.4 BMI Classification: Normal - NPO >8 hours - Is Patient ?: No - Lab Results Lab results reviewed: Yes Home Medications and Allergies Home Medications: Ambulatory Orders Budesonide [Pulmicort] 11/25/23 Sumatriptan Succinate [Imitrex] 100 mg PO DAILY 10/14/21 Budesonide [Pulmicort] 11/25/23 Allergies/Adverse Reactions: Allergies Allergy/AdvReac Type Severity Reaction Status Date / Time acetaminophen [From Tylenol] Allergy Rash Verified 11/25/23 11:20 Botulinum Toxin Allergy Rash Verified 11/25/23 11:20 doxycycline Allergy Rash Verified 11/25/23 11:20 latex Allergy Unknown Verified 10/14/21 00:20 Penicillins Allergy Unknown Verified 10/14/21 00:21 propranolol Allergy Unknown Verified 11/25/23 11:20 Sulfa (Sulfonamide Allergy Unknown Verified 10/14/21 00:22 Antibiotics) topiramate Allergy Unknown Verified 11/25/23 11:20 levofloxacin [From Levaquin] AdvReac Unknown Verified 11/25/23 11:42 Anes History & Medical History - Anesthetic History Anesthesia Complications: reports: No previous complications, Other-see comment (post op tachycardia/bradycardia, pt cant recall) Family history of Anesthesia Complications: Denies Family history of Malignant Hyperthermia: Denies - Medical History Cardiovascular: reports: Arrhythmia, Other Pulmonary: reports: Pneumonia Gastrointestinal: reports: GERD, Other Urinary: reports: None Neuro: reports: Migraines Musculoskeletal: reports: Osteoarthritis Endocrine/Autoimmune: reports: None Skin: reports: Rosacea Smoking Status: Never smoker - Surgical History Eyes Ears Nose Throat (EENT): reports: Tonsil/Adenoidectomy Orthopedic: reports: Other Exam General: Alert, Oriented x3, Cooperative Dental: TMJ, Partials Lower (out) Mouth Openin Fingerbreadth Neck Mobility: Normal Mallampati classification: II Respiratory: Lungs clear, Normal breath sounds, No respiratory distress Cardiovascular: Regular rate (55ish) Neurological: Normal speech Mental/Cognitive Status: Alert/Oriented X3, Normal for patient Cognitive Status: Within normal limits Plan Anesthesia Type: Total IV Consent for Procedure(s) Verified and Reviewed: Yes Code Status: Attempt Resuscitation ASA classification: 3-Severe systemic disease Is this case an emergency?: No
--- NOTE | 2023-11-25 13:12 | HISTORY & PHYSICAL EXAMINATION ---
Chief Complaint - Chief Complaint Chief Complaint: here for upper endoscopy History of Present Illness - History Obtained From Records Reviewed: yes History obtained from: pt Exam Limitations: none - History of Present Illness HPI Comment/Other: trouble swallowing, feeling something in the esophagus and history celiac or gluten sensitivity. she is on a careful gluten free diet at this time. History - Past Medical History Cardiovascular: reports: Arrhythmia, Other Respiratory: reports: Pneumonia Neuro: reports: Migraines Endocrine/Autoimmune: reports: None GI: reports: GERD, Other : reports: None HEENT: reports: Chronic sinusitis Psych: reports: Depression Musculoskeletal: reports: Osteoarthritis Derm: reports: Rosacea MRSA Hx?: No - Past Surgical History Ortho: reports: Other HEENT: reports: Tonsil/Adenoidectomy Meds/Allgy - Home Medications Home Medications: Ambulatory Orders Medication Instructions Recorded Confirmed Sumatriptan Succinate [Imitrex] 100 mg PO DAILY 10/14/21 11/25/23 Budesonide [Pulmicort] 11/25/23 - Allergies Allergies/Adverse Reactions: Allergies Allergy/AdvReac Type Severity Reaction Status Date / Time acetaminophen [From Tylenol] Allergy Rash Verified 11/25/23 11:20 Botulinum Toxin Allergy Rash Verified 11/25/23 11:20 doxycycline Allergy Rash Verified 11/25/23 11:20 latex Allergy Unknown Verified 10/14/21 00:20 Penicillins Allergy Unknown Verified 10/14/21 00:21 propranolol Allergy Unknown Verified 11/25/23 11:20 Sulfa (Sulfonamide Allergy Unknown Verified 10/14/21 00:22 Antibiotics) topiramate Allergy Unknown Verified 11/25/23 11:20 levofloxacin [From Levaquin] AdvReac Unknown Verified 11/25/23 11:42 Review of Systems - Other Findings Other Findings: 10 pt ros as above otherwise unremarkable Exam - Physical Exam General Appearance: positive: No acute distress, Alert Eyes Bilateral: positive: PERRL, EOMI ENT: positive: No signs of dehydration Neck: positive: No JVD Respiratory: positive: No respiratory distress Cardiovascular: positive: Regular rate & rhythm Abdomen: positive: No distention Neurologic/Psychiatric: positive: Oriented x3 Conclusion/Plan - Problem List (1) Trouble swallowing Conclusion/Plan: plan egd with biopsies. parq held and consent obtained - Lab Results Lab results reviewed: Yes
[2023-11-25] MEDS: LACTATED RINGERS 300 ML IV ONE (13:37)
[2023-11-25 14:15] VITALS: BP 110/74; O2SAT 99
--- NOTE | 2023-11-25 14:57 | ANESTHESIA POST OP EVALUATION ---
Anesthesia Post Eval - Post Anesthesia Eval Vitals: Last Vital Signs Temp 36.3 C L 11/25/23 14:10 Pulse 66 11/25/23 14:10 Resp 16 11/25/23 14:10 BP 110/74 11/25/23 14:10 Pulse Ox 99 11/25/23 14:10 O2 Flow Rate CV Function Including HR & BP: Stable Pain Control: Satisfactory Nausea & Vomiting: Negative Mental Status: Baseline Respiratory Status: Airway Patent Hydration Status: Satisfactory Anesthesia Complications: None
== END 2023-11-25 08:26 | disposition home or self-care (01) ==
LOC: SDS 08:25
PROVIDERS: ATTEND Surgery
PROC: 0DB78ZX Excision of Stomach, Pylorus, Via Natural or Artificial Opening Endoscopic, Diagnostic (ICD-10-PCS; 2023-11-25)
PROC: 0DB28ZX Excision of Middle Esophagus, Via Natural or Artificial Opening Endoscopic, Diagnostic (ICD-10-PCS; 2023-11-25)
PROC: 0DB38ZX Excision of Lower Esophagus, Via Natural or Artificial Opening Endoscopic, Diagnostic (ICD-10-PCS; 2023-11-25)
PROC: 0DB98ZX Excision of Duodenum, Via Natural or Artificial Opening Endoscopic, Diagnostic (ICD-10-PCS; principal; 2023-11-25 12:00)
DX: R13.10 Dysphagia, unspecified (principal); R10.13 Epigastric pain; K21.9 Gastro-esophageal reflux disease without esophagitis; K20.90 Esophagitis, unspecified without bleeding
CPT/HCPCS: 43239; J7120

== ENCOUNTER 2023-12-26 15:39 | Outpatient (CLI) | payer MEDICARE ==
--- NOTE | 2023-12-26 17:23 | Ultrasound Report ---
PROCEDURE: Soft Tissue Head or Neck INDICATIONS: PAROTIDITIS TECHNIQUE: Real-time scanning was performed of the neck gland, with image documentation. COMPARISON: None FINDINGS: Scanning was performed of the submandibular, parotid, and sublingual regions, at the areas of palpabl e concern. At these areas, no masses or enlarged lymph nodes are seen. IMPRESSION: No masses or enlarged lymph nodes are seen. If it would be helpful for clinical management decision making, please consider a dedicated neck CT ( soft tissue protocol) with IV contrast for further evaluation. Reviewed by: Osman Saul MD on 12/26/2023 4:22 PM JOSÉ MIGUEL Approved by: Osman Saul MD on 12/26/2023 4:22 PM JOSÉ MIGUEL Station ID: [id number]
== END 2023-12-26 15:40 | disposition home or self-care (01) ==
LOC: DI 15:39
PROVIDERS: ATTEND Registered Nurse
DX: K11.20 Sialoadenitis, unspecified (principal)

== ENCOUNTER 2024-01-13 14:20 | Outpatient (CLI) | payer MEDICARE ==
--- NOTE | 2024-01-13 16:29 | DEXA Report ---
PROCEDURE: Dexa Spine and/or Hip INDICATIONS: POST MENOPAUSAL TECHNIQUE: Dual energy x-ray absorptiometry (DXA) was performed on a [employer] System. Regions measur ed are the AP Spine, femoral neck, and if needed forearm. COMPARISON: None FINDINGS: Lumbar Spine: Bone Mineral Density: 0.948 g/cm/cm,T score: -1.9. Left Femoral Neck: Bone Mineral Density: 0.742 g/cm/cm, T score: -2.1. Left Hip: Bone Mineral Density: 0.747 g/cm/cm,T score: -2.1. FRAX risk factors: None given. 10 year risk of major osteoporotic fracture: 15.6% major osteoporotic fracture = hip, clinical vertebral, proximal humerus, distal forearm 10 year risk of hip fracture: 2.5% (T score greater or equal to -1.0: NORMAL) (T score from -1.1 to -2.4: OSTEOPENIA) (T score less than or equal to -2.5 to: OSTEOPOROSIS) Impression: By WHO criteria, this patient has low bone density (osteopenia). Patients with diagnosis of osteoporosis or osteopenia should have regular bone mineral density assess ment. For those eligible for Medicare, routine testing is allowed once every 2 years. Testing frequ ency can be increased for patients who have rapidly progressing disease or for those who are receivin g medical therapy to restore bone mass. Reviewed by: Sha Regalado MD on 01/13/2024 4:28 PM PDT Approved by: Sha Regalado MD on 01/13/2024 4:28 PM PDT Station ID: [id number]
== END 2024-01-13 14:21 | disposition home or self-care (01) ==
LOC: DI 14:20
PROVIDERS: ATTEND Registered Nurse
DX: M85.89 Other specified disorders of bone density and structure, multiple sites (principal); Z78.0 Asymptomatic menopausal state